=== PATIENT | male | born 1980 | race Caucasian/White ===

== ENCOUNTER 2021-04-01 21:26 | Emergency (ER) | payer OTHER ==
[~2021-04-01] VITALS: Ht 162.6 cm; Wt 61.2 kg
[~2021-04-01 21:26] MED LIST: DOCU100 PO; HYDR1TAB94 PO; IBUP800 PO; O; OXYACE5T PO; PENVK250 PO; PENVK500 PO; POLY17UD PO; RXOXYACE PO; RXPENVK250 PO
== END 2021-04-01 23:32 | disposition home or self-care (01) ==
LOC: ER 21:26
DX: S22.32XA Fracture of one rib, left side, initial encounter for closed fracture (principal); W11.XXXA Fall on and from ladder, initial encounter
CPT/HCPCS: 71046; 99283-25

== ENCOUNTER 2024-12-11 01:32 | Observation (INO) | payer OTHER ==
[~2024-12-11] VITALS: Ht 182.9 cm; Wt 58.2 kg
[2024-12-11] VITALS (12 sets, daily range): BP systolic 93–144; BP diastolic 65–116
[2024-12-11 01:45] LABS: Chloride (POC) 109 mmol/L (98-108); Creatinine (POC) 1.3 mg/dL (0.8-1.3); Glucose (ISTAT POC) 266 mg/dL (70-99); Hemoglobin (POC) 10.5 g/dL (13.5-17.5); Potassium (POC) 2.3 mmol/L (3.5-5.5); Sodium (POC) 141 mmol/L (135-148); Total CO2 (POC) 14 mmol/L (21-32)
[2024-12-11] MEDS ORDERED: propofoL 100 ML IV SCH (01:45)
[2024-12-11] MEDS ORDERED: Diphth,Pertuss(Acell),Tet Vac 0.5 ML VIAL IM ONE (01:45)
[2024-12-11] MEDS ORDERED: NS 1,000 ML IV SCH (01:45)
[2024-12-11 01:49] LABS: BASOPHILS ABSOLUTE AUTO 0.06 K/mm3 (0.00-0.23); BASOPHILS PERCENT AUTO 1 % (0-2); EOSINOPHILS ABSOLUTE AUTO 0.12 K/mm3 (0.00-0.68); EOSINOPHILS PERCENT AUTO 1 % (0-6); Hematocrit 31.9 % (37.0-53.0); Hemoglobin 10.5 g/dL (13.5-17.5); IMMATURE GRAN ABSOLUTE AUTO 0.17 K/mm3 (0.00-0.10); IMMATURE GRAN PERCENT AUTO 1 % (0-1); LYMPHOCYTES ABSOLUTE AUTO 3.81 K/mm3 (0.84-5.20); LYMPHOCYTES PERCENT AUTO 31 % (21-46); MONOCYTES ABSOLUTE AUTO 0.48 K/mm3 (0.16-1.47); MONOCYTES PERCENT AUTO 4 % (4-13); Mean Corpuscular HGB 31.3 pg (26.0-34.0); Mean Corpuscular HGB Conc 32.9 g/dL (31.5-36.5); Mean Corpuscular Volume 95 fL (80-100); Mean Platelet Volume 9.4 fL (9.1-12.4); NEUTROPHILS ABSOLUTE AUTO 7.86 K/mm3 (1.96-9.15); NEUTROPHILS PERCENT AUTO 63 % (41-73); Platelet Count 346 K/mm3 (150-400); RDW Coefficient Variation 13.5 % (11.7-14.2); RDW Standard Deviation 46.9 fL (35.1-46.3); Red Blood Cell Count 3.36 M/mm3 (4.30-5.90)
[2024-12-11] MEDS ORDERED: CefTRIAXone Sodium 2,000 MG in NS 100 ML IV ONE (02:05)
[2024-12-11 02:07] LABS: Magnesium, Blood 2.7 mg/dL (1.6-2.4)
[2024-12-11 02:12] LABS: International Normalized Ratio 0.99; Prothrombin Time Results 10.6 Sec (9.7-11.5)
[2024-12-11 02:16] LABS: Bilirubin, Urine Neg (Neg); Blood, Urine 1+ (Neg); Glucose Qualitative, Urine 3+ (Neg); Ketones, Urine Neg (Neg); Leukocyte Esterase, Urine Neg (Neg); Nitrite, Urine Neg (Neg); Protein, Urine 2+ (Neg); Source, Urine Foley catheter; Specific Gravity, Urine 1.005 (1.003-1.022); Urobilinogen, Urine NORM (Normal)
[2024-12-11 02:18] LABS: PCO2 Arterial 39.6 mmHg (35-45); PO2 Arterial 481 mmHg (80-100)
[2024-12-11 02:20] LABS: pH Blood Arterial 7.17 (7.35-7.45)
[2024-12-11] MEDS ORDERED: Sodium Bicarb 8.4% 1 MEQ/ML 50 ML Vial IV ONE (02:25)
[2024-12-11 02:27] LABS: Appearance, Urine Clear (Clear); Color, Urine Pale Yellow (P-Yellow)
[2024-12-11 02:28] LABS: Bacteria Few /hpf; Red Blood Cells, Urine 0-2 /hpf (0-2); Squamous Epithelial Cells Few /hpf (Few); White Blood Cells, Urine 0-2 /hpf (0-5)
[2024-12-11 02:29] LABS: U Amphetamine Screen Not Detected; U Barbituate Screen Not Detected; U Benzodiazapine Screen Not Detected; U Buprenorphine Screen Not Detected; U Cannabinoids Screen Not Detected; U Cocaine Screen Not Detected; U Methadone Screen Not Detected; U Methamphetamine Screen Not Detected; U Opiates Screen Not Detected; U Oxycodone Screen Not Detected; U Phencyclidine Screen Not Detected
[2024-12-11 02:40] LABS: Albumin, Blood 2.7 g/dL (3.4-5.0); Albumin/Globulin Ratio 0.9 (0.8-1.8); Bilirubin, Total 0.1 mg/dL (0.1-1.0); Bun/Creatinine Ratio 7.8 (12.0-20.0); Calcium, Blood 7.3 mg/dL (8.5-10.1); Creatinine, Blood 1.03 mg/dL (0.60-1.20); Globulin, Blood 2.9 g/dL (2.2-4.0); Potassium, Blood 2.4 mmol/L (3.5-5.5); Total Protein, Blood 5.6 g/dL (6.4-8.2)
[2024-12-11] MEDS ORDERED: Potassium Chl 20MEQ/Water100ML 100 ML IV SCH (02:45)
[2024-12-11] MEDS ORDERED: Tranexamic Acid 100 ML IV ONE (02:45)
--- NOTE | 2024-12-11 02:52 | NUR ---
Spiritual care visit attempted. In responding to a call-back, I arrived at the ED to find that the family just left. I will continue to remain available.
[2024-12-11] MEDS ORDERED: Ondansetron HCl 2 MG / ML 2ML Vial IV PRN ×2 (04:15→08:10)
[2024-12-11] MEDS ORDERED: FentaNYL Citrate 50 MCG/ML 2 ML Injection IV PRN ×2 (04:15→04:50)
[2024-12-11] MEDS ORDERED: NS 1,000 ML IV ONE (04:15)
[2024-12-11] MEDS ORDERED: FLU VACC TS2024-25(6MOS UP)/PF 45 MCG/0.5 ML SYRINGE IM ONE (04:15)
[2024-12-11] MEDS ORDERED: propofoL 100 ML IV PRN (04:45)
--- NOTE | 2024-12-11 05:52 | NUR ---
ARRIVAL TO ICU: PT ARRIVED TO ICU BED 05 VIA GURNEY AT 0504 FROM ER. REPORT RECEIVED FROM NASREEN MARTEL. PT INTUBATED AND SEDATED UPON ARRIVAL. SEDATION TURNED OFF FOR NEURO ASSESSMENT. PT HAS NO RESPONSE TO PAIN OR VERBAL STIMULI. RIGHT PUPIL FIXED AND DILATED, LEFT PUPIL SLUGGISH. PT HAS GAG WITH DEEP SUCTION, NO COUGH OR SWALLOW NOTED. PROPOFOL RESTARTED AT 25 MCG/KG/MIN FOR VENT COMPLIANCE. PT RR 30'S. VENT SETTINGS AC/VC 18/400/5/100%. SPO2 HIGH 90'S. LUNGS CLEAR. 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 SBP 120'S. TEMP 99.3. TEMP CARDENAS PATENT AND DRAINING TO GRAVITY. RED, THICK SECRETIONS NOTED FROM ET TUBE. OGT SET TO LIS. PIVS INTACT. DRESSING TO FOREHEAD CHANGED, OOZING NOTED. BILATERAL EYES HAVE NOTICEABLE EDEMA AND BRUISING. FAMILY AT THE BEDSIDE, UPDATED TO CARE.
[2024-12-11] MEDS ORDERED: Pantoprazole Sodium 40 MG Injection IV SCH (06:00)
--- NOTE | 2024-12-11 07:04 | NUR ---
I conducted a lengthy visit with the patient's mother Katelynn this AM. She shares about the events of the night, then speaks at length about the complexity of their relationship and about the damage the patient's addiction to alcohol had caused in his life for many yrs. Katelynn is very tearful at times and explains about her story and the terrible circumstances that she found herself and her sons in. I conducted a life review, encouraged self care and provided therapeutic listening and a last rites sort of prayer (as well as, a prayer for Katelynn and her grief). I will continue to remain available to patient and patient's friends throughout the extubation and beyond to supply anticipatory and complicated grief support.
[2024-12-11] MEDS ORDERED: Morphine Sulfate 20 MG/1ML 1 ML Oral Syringe SL PRN ×2 (07:40→08:10)
[2024-12-11] MEDS ORDERED: Cetylpyridinium Chloride 1 EA MISC MT SCH (08:00)
[2024-12-11] MEDS ORDERED: HYDROmorphone HCl/Pf 1MG SYR IV PRN (08:05)
[2024-12-11] MEDS ORDERED: Haloperidol Lactate Inj. 5 MG/ML Injection ONE (08:06)
[2024-12-11] MEDS ORDERED: Morphine Sulfate 10 MG/ML 1MLSYR ONE (08:07)
[2024-12-11] MEDS ORDERED: Scopolamine Hydrobromide Patch TOP PRN (08:10)
[2024-12-11] MEDS ORDERED: Acetaminophen 650 MG Supp PR PRN (08:10)
[2024-12-11] MEDS ORDERED: LORazepam 2 MG/ML 1ML Injection IV PRN (08:10)
[2024-12-11] MEDS ORDERED: Haloperidol Lactate Inj. 5 MG/ML Injection IV PRN (08:10)
[2024-12-11] MEDS ORDERED: Atropine Sulfate 1% Opth Soln 2ML BTL SL PRN (08:10)
[2024-12-11] MEDS ORDERED: LORazepam 2 MG/ML 1ML Injection ONE (08:13)
[2024-12-11] MEDS ORDERED: Morphine Sulfate 10 MG/ML 1MLSYR IV PRN (08:15)
--- NOTE | 2024-12-11 08:38 | NUR ---
PT'S MOTHER HAS BEEN AT THE BEDSIDE AND STATED THAT SHE WANTED TO EXTUBATE TO COMFORT ONCE PT'S FRIEND ARRIVED. DR. KING NOTIFIED AND CAME TO THE BEDSIDE TO PLACE COMFORT CARE ORDERS. PT HAD RR IN THE 40S AND HR IN THE 160S WHILE ON THE VENTILATOR. MEDICATED FOR PAIN WHILE AWAITING HIS FRIEND. ONCE PT'S FRIEND ARRIVED, HIS MOTHER CONFIRMED SHE WAS READY TO EXTUBATE PT TO COMFORT. PT MEDICATED WITH ROXANOL, IV MORPHINE, ATIVAN AND HALDOL PER DISCUSSION WITH DR. KING TO TRY AND GET PT COMFORTABLE BEFORE EXTUBATION. PT'S BREATHING APPEARED A LITTLE EASIER AFTER THOSE MEDICATIONS, BUT STILL LABORED AND HR 180S AT THAT TIME. MEDICATED WITH DILAUDID AND PT'S WORK OF BREATHING DECREASED SIGNIFICANTLY AND HR TO 150S. PT EXTUBATED AT 0825. PT'S MOTHER, FRIENDS AND ALIGNMENT MECHANIC AT BEDSIDE.
[2024-12-11] MEDS ORDERED: LORazepam 2 MG/ML 1ML Injection IV ONE (09:00)
--- NOTE | 2024-12-11 09:51 | NUR ---
PT MEDICATED SINCE EXTUBATION TO HELP WITH WORK OF BREATHING. PT HAD LOUD, SNOROUS RESPIRATIONS. AT 0934, PT HR QUICKLY DROPPED FROM THE 160S TO 70S. PT'S FAMILY AT THE BEDSIDE AND UPDATED. PT HAVING AGONAL BREATHS AT THAT TIME. AT 0940, ELECTRICAL ACTIVITY STOPPED, HEART TONES NOT ABLE TO BE AUSCULTATED AND PRONOUNCED. PT'S MOTHER AND FRIENDS AT THE BEDSIDE INFORMED. SUMAC TANNER INFORMED AND CAME TO THE BEDSIDE. SUPPORT PROVIDED.
[2024-12-11] MEDS ORDERED: Hydrogen Peroxide 1.5 % Solution MT SCH (12:00)
== END 2024-12-11 10:45 ==
LOC: ER 01:32 → ICUE 04:10 → UNDODEPER 07:09 → ICUE 10:45
PROVIDERS: Emergency Medicine; ADMIT Internal Medicine
DX: S01.83XA Puncture wound without foreign body of other part of head, initial encounter (principal); F17.210 Nicotine dependence, cigarettes, uncomplicated; F10.129 Alcohol abuse with intoxication, unspecified; E87.20 Acidosis, unspecified; E87.6 Hypokalemia; Z51.5 Encounter for palliative care
CPT/HCPCS: 36600; 51702; 70450; 70486; 71045; 72125; 80047; 80053; 80320; 81001; 82803; 83605; 83735; 84484; 85014; 85025; 85610; 87040; 90471; 90715; 93005; 93010; 94002; 96365; 96366; 96367; 96375; 96376; 99291-25; 99292; A9270; G0378; G0390; J0696; J1171; J1630; J2060; J2270; J2470; J2704; J3010; J3480; J7030; L0160